=== PATIENT | female | born 1950 | race Caucasian/White ===

== ENCOUNTER 2017-04-13 22:21 | Emergency (ER) | payer MEDICARE, OTHER ==
[~2017-04-13] VITALS: Ht 167.6 cm; Wt 70.5 kg
[~2017-04-13 22:21] MED LIST: LORTA5 PO; MELO7.5 PO; SERT50 PO; SULF1TAB47 PO
[2017-04-13] MEDS ORDERED: DEXAMETHASONE SOD PHOS 20 MG/5 ML VIAL IM ONE (22:30)
[2017-04-13] MEDS ORDERED: AMLO5TAB2 PO (22:30)
[2017-04-13] MEDS ORDERED: ZOLO50TA PO (22:30)
[2017-04-13 22:31] VITALS: BP 145/84; PULSE 114; RESP 18; TEMP 98.2; O2SAT 92
[2017-04-13] MEDS ORDERED: MEDR4PAK PO (22:38)
[2017-04-13] MEDS ORDERED: VENTAER INH (22:38)
[2017-04-13] MEDS ORDERED: ZITHTAB PO (22:38)
--- NOTE | 2017-04-13 22:39 | PD ---
HPI Chief Complaint: Respiratory Symptoms Time Seen by Provider: 22:30 Travel History International Travel<30 days: No Contact w/Intl Traveler<30days: No Traveled to known affect area: No History of Present Illness HPI PT C/O 4 DAYS OF COUGH, WHITISH SPUTUM, PATIENT HAS RUN OUT OF HER ALBUTEROL AND HAS HAD WHEEZING SINCE RECENT CHANGE OF WEATHER. PATIENT DENIES FEVER/N/V/D /ABDPAIN/CP/ PCP DR WAGNER ALL:NKDA PMHX: COPD (SMOKER) NOT OXYGEN DEPENDANT PSHX: PFSH Past Medical History Arthritis: Yes Anxiety: Yes Depression: Yes Diminished Hearing: No Past Surgical History Appendectomy: Yes Hysterectomy: Yes Social History Alcohol Use: Yes Tobacco Use: Yes (1 PPD) Substance Use: No Allergies-Medications (Allergen,Severity, Reaction): Coded Allergies: No Known Allergies (Verified Adverse Reaction, Unknown, 04/13/17) Reported Meds & Prescriptions Reported Meds & Active Scripts Active Reported Amlodipine (Amlodipine Besylate) 5 Mg Tab 5 Mg PO DAILY Zoloft (Sertraline HCl) 50 Mg Tab 50 Mg PO DAILY Review of Systems Except as stated in HPI: all other systems reviewed are Neg General / Constitutional: No: Fever Eyes: No: Visual changes HENT: No: Headaches Cardiovascular: No: Chest Pain or Discomfort Respiratory: Positive: Cough, Wheezing Gastrointestinal: No: Abdominal Pain Genitourinary: No: Dysuria Musculoskeletal: No: Pain Skin: No Rash Neurologic: No: Weakness Psychiatric: No: Depression Endocrine: No: Polydipsia Hematologic/Lymphatic: No: Easy Bruising Physical Exam Narrative GENERAL: SKIN: Warm and dry. HEAD: Atraumatic. Normocephalic. EYES: Pupils equal and round. No scleral icterus. No injection or drainage. ENT: No nasal bleeding or discharge. Mucous membranes pink and moist. NECK: Trachea midline. No JVD. CARDIOVASCULAR: Regular rate and rhythm. RESPIRATORY: No accessory muscle use. GOOD TIDAL VOLUME BUT PRESENT WHEEZING BILATERALLY GASTROINTESTINAL: Abdomen soft, non-tender, nondistended. MUSCULOSKELETAL: Extremities without clubbing, cyanosis, or edema. No obvious deformities. NEUROLOGICAL: Awake and alert. No obvious cranial nerve deficits. Motor grossly within normal limits. Five out of 5 muscle strength in the arms and legs. Normal speech. PSYCHIATRIC: Appropriate mood and affect; insight and judgment normal. Data Data Orders Orders Influenzae A/B Antigen (04/13/17 22:30) Chest, Pa & Lat (04/13/17 22:30) Dexamethasone Inj (Decadron Inj) (04/13/17 22:30) Albuterol Neb (Albuterol Neb) (04/13/17 22:30) MDM Medical Decision Making Medical Screen Exam Complete: Yes Emergency Medical Condition: Yes Medical Record Reviewed: Yes Differential Diagnosis COPD EXACER V PNA V PTX Diagnosis Primary Impression: COPD exacerbation Patient Instructions: COPD (Chronic Obstructive Pulmonary Disease) (ED), General Instructions Additional Instructions: PLEASE FOLLOW UP WITH DR WAGNER FOR FURTHER CARE Scripts Albuterol 18 GM Inh (Ventolin Hfa 18 GM Inh) 90 Mcg/Act Aer 1 PUFF INH Q4H Y for SHORTNESS OF BREATH, #1 INHALER 0 Refills Prov: Rik Hong MD 04/13/17 Azithromycin (Zithromax Z-Eyad) 250 Mg Dspk 250 MG PO DIRECTED for Infection, #1 DSPK 0 Refills 500 MG (2 tabs) day 1, then 1 tab days 2-5. Prov: Rik Hong MD 04/13/17 Methylprednisolone Dosepak (Medrol Dosepak) 4 Mg Dspk 4 MG PO DIRECTED, #1 DSPK 0 Refills Per Pharmacist direction Prov: Rik Hong MD 04/13/17 Disposition: 01 DISCHARGE HOME Condition: Stable Rik Hong MD Apr 13, 2017 22:39
[2017-04-13] MEDS: RESP: ALBUTEROL 2.5 MG/3 ML NEB (SCH) INH ×2 (22:44→22:45)
--- NOTE | 2017-04-13 22:50 | RADRPT ---
EXAM DATE/TIME: 04/13/2017 22:38 [facility] COMPARISON: No previous studies available for comparison. INDICATIONS : Shortness of breath for 3 days MEDICAL HISTORY : Chronic obstructive pulmonary disease. SURGICAL HISTORY : None. ENCOUNTER: Initial ACUITY: 3 days PAIN SCORE: 0/10 LOCATION: Bilateral chest FINDINGS: PA and lateral views of the chest demonstrate the lungs to be symmetrically aerated without evidence of mass, infiltrate or effusion. The cardiomediastinal contours are unremarkable. Osseous structure s are intact. CONCLUSION: Normal examination. Ryley Boswell MD on April 13, 2017 at 22:48 Board Certified Radiologist. This report was verified electronically.
[2017-04-14 00:14] VITALS: BP 140/80; PULSE 92; RESP 18; O2SAT 94
[2017-04-16] MEDS ORDERED: VENTAER INH (09:23)
[2017-04-16] MEDS ORDERED: ALBU0.08 INH (09:23)
[2017-04-16] MEDS ORDERED: PRED10PA PO (09:23)
== END 2017-04-14 00:17 | disposition home or self-care (01) ==
LOC: PHED 22:21
DX: J44.1 Chronic obstructive pulmonary disease with (acute) exacerbation (principal); F17.200 Nicotine dependence, unspecified, uncomplicated; Z87.09 Personal history of other diseases of the respiratory system; Z87.39 Personal history of other diseases of the musculoskeletal system and connective tissue; Z86.59 Personal history of other mental and behavioral disorders
CPT/HCPCS: 71020; 87804; 94640; 94664; 96372; 99284; J1100; J7613

== ENCOUNTER 2017-04-14 18:18 | Inpatient (IN) | payer MEDICARE ==
[~2017-04-14] VITALS: Ht 165.1 cm; Wt 71.9 kg
[2017-04-14] VITALS (8 sets, daily range): BP systolic 128–166; BP diastolic 60–90; PULSE 27–127; RESP 20–22; TEMP 98–98.8; O2SAT 91–96
[~2017-04-14 18:18] MED LIST changes: +AMLO5TAB2 PO; +ENOXAPARIN SODIUM 40 MG/0.4 ML SYRINGE SQ SCH; -LORTA5 PO; +MEDR4PAK PO; -MELO7.5 PO; -SERT50 PO; -SULF1TAB47 PO; +VENTAER INH; +ZITHTAB PO; +ZOLO50TA PO
[2017-04-14] MEDS: RESP: ALBUTEROL 2.5 MG/3 ML NEB (SCH) INH ×4 (18:29→18:30)
[2017-04-14] MEDS ORDERED: methylPREDNISolone SOD SUCC 125 MG/2 ML VIAL IV PUSH ONE ×2 (18:30)
[2017-04-14] MEDS ORDERED: MAGNESIUM SULFATE 1 GM PREMIX 100 ML IV ONE ×2 (18:30)
[2017-04-14] MEDS ORDERED: SODIUM CHLORIDE 0.9% FLUSH 10 ML FLUSH IVF PRN ×2 (18:30)
--- NOTE | 2017-04-14 18:34 | PD ---
HPI Chief Complaint: Respiratory Symptoms Time Seen by Provider: 18:21 Travel History International Travel<30 days: No Contact w/Intl Traveler<30days: No Traveled to known affect area: No History of Present Illness HPI PATIENT SEEN YESTERDAY FOR COPD FLARE, PULSE OX WAS NORMAL. HOWEVER PER PT SOB RESUMED, PRESENTS TODAY WITH PULSE OX 89% ON RA, PER PATIENT SHE IS NOT OXYGEN DEPENDANT. PATIENT ON MEDROL TRICIA AND ZPAK....HOWEVER RETURNS TODAY VISIBLY WORSE THAN YESTERDAY. DENIES FEVER/PROD COUGH/N/V/D/ABDPAIN/CP. NO ALLEVIATING OR AGGRAVATING FACTORS PER PATIENT. PATIENT ALSO STATES THAT SHE IS CONTINUING TO SMOKE CIGARETTES (SMOKED 3 BETWEEN LAST NIGHT AND TODAY, USUALLY SMOKES 1 TO 1.5 PPD) PCP IS DR WAGNER [facility] Past Medical History Arthritis: Yes Anxiety: Yes Depression: Yes Diminished Hearing: No Menopausal: Yes Past Surgical History Appendectomy: Yes Hysterectomy: Yes Social History Alcohol Use: Yes Tobacco Use: Yes (1 PPD) Substance Use: No Allergies-Medications (Allergen,Severity, Reaction): Coded Allergies: No Known Allergies (Verified Adverse Reaction, Unknown, 04/13/17) Reported Meds & Prescriptions Reported Meds & Active Scripts Active Ventolin Hfa 18 GM Inh (Albuterol Sulfate) 90 Mcg/Act Aer 1 Puff INH Q4H PRN Zithromax Z-Tricia (Azithromycin) 250 Mg Dspk 250 Mg PO DIRECTED 500 MG (2 tabs) day 1, then 1 tab days 2-5. Medrol Dosepak (Methylprednisolone) 4 Mg Dspk 4 Mg PO DIRECTED Per Pharmacist direction Reported Amlodipine (Amlodipine Besylate) 5 Mg Tab 5 Mg PO DAILY Zoloft (Sertraline HCl) 50 Mg Tab 50 Mg PO DAILY Review of Systems Except as stated in HPI: all other systems reviewed are Neg General / Constitutional: No: Fever Eyes: No: Visual changes HENT: No: Headaches Cardiovascular: No: Chest Pain or Discomfort Respiratory: Positive: Shortness of Breath, Wheezing Gastrointestinal: No: Abdominal Pain Genitourinary: No: Dysuria Musculoskeletal: No: Pain Skin: No Rash Neurologic: No: Weakness Psychiatric: No: Depression Endocrine: No: Polydipsia Hematologic/Lymphatic: No: Easy Bruising Physical Exam Narrative GENERAL: SKIN: Warm and dry. HEAD: Atraumatic. Normocephalic. EYES: Pupils equal and round. No scleral icterus. No injection or drainage. ENT: No nasal bleeding or discharge. Mucous membranes pink and moist. NECK: Trachea midline. No JVD. CARDIOVASCULAR: Regular rate and rhythm. RESPIRATORY: SUPRASTERNAL accessory muscle use. DECREASED TV, JULIO WHEEZING, TRIPODING, ONE WORD DYSPNEA GASTROINTESTINAL: Abdomen soft, non-tender, nondistended. MUSCULOSKELETAL: Extremities without clubbing, cyanosis, or edema. No obvious deformities. NEUROLOGICAL: Awake and alert. No obvious cranial nerve deficits. Motor grossly within normal limits. Five out of 5 muscle strength in the arms and legs. Normal speech. PSYCHIATRIC: Appropriate mood and affect; insight and judgment normal. Data Data Last Documented VS Vital Signs Date Time Temp Pulse Resp B/P (MAP) Pulse Ox O2 Delivery O2 Flow Rate FiO2 04/14/17 21:02 20 04/14/17 20:57 114 128/60 (82) 96 Nasal Cannula 2.00 04/14/17 19:18 98.0 Orders Orders Complete Blood Count With Diff (04/14/17 18:) Comprehensive Metabolic Panel (04/14/17 18:22) B-Type Natriuretic Peptide (04/14/17 18:22) Act Partial Throm Time (Ptt) (04/14/17 18:) Prothrombin Time / Inr (Pt) (04/14/17 18:) Ckmb (Isoenzyme) Profile (04/14/17 18:22) Troponin I (04/14/17 18:22) Urinalysis - C+S If Indicated (04/14/17 18:22) Iv Access Insert/Monitor (04/14/17 18:22) Electrocardiogram (04/14/17 18:22) Ecg Monitoring (04/14/17 18:22) Oximetry (04/14/17 18:22) Oxygen Administration (04/14/17 18:22) Sodium Chloride 0.9% Flush (Ns Flush) (04/14/17 18:30) Methylprednisolone So Succ Inj (Solumedr (04/14/17 18:30) Albuterol Neb (Albuterol Neb) (04/14/17 18:30) Magnesium Sulfate 1 Gm Premix (Magnesium (04/14/17 18:30) Ct Pulmonary Angiogram (04/14/17 19:00) CKMB (04/14/17 18:50) CKMB% (04/14/17 18:50) Arterial Blood Gas (Abg) (04/14/17 19:23) Lactic Acid Sepsis Protocol (04/14/17 19:23) Sodium Chlor 0.9% 1000 Ml Inj (Ns 1000 M (04/14/17 19:30) Iohexol 350 Inj (Omnipaque 350 Inj) (04/14/17 19:45) Acetaminophen (Tylenol) (04/14/17 20:30) Lorazepam Inj (Ativan Inj) (04/14/17 20:30) Labs Laboratory Tests Test 04/14/17 18:50 04/14/17 18:58 04/14/17 19:40 04/14/17 20:19 Blood Urea Nitrogen 9 MG/DL Creatinine 0.96 MG/DL Random Glucose 128 MG/DL Total Protein 8.5 GM/DL Albumin 3.8 GM/DL Calcium Level 8.8 MG/DL Alkaline Phosphatase 61 U/L Aspartate Amino Transf (AST/SGOT) 26 U/L Alanine Aminotransferase (ALT/SGPT) 22 U/L Total Bilirubin 0.4 MG/DL Sodium Level 129 MEQ/L Potassium Level 3.4 MEQ/L Chloride Level 95 MEQ/L Carbon Dioxide Level 23.6 MEQ/L Anion Gap 10 MEQ/L Estimat Glomerular Filtration Rate 58 ML/MIN Total Creatine Kinase 419 U/L Creatine Kinase MB 2.3 NG/ML Creatine Kinase MB % 0.5 % Troponin I LESS THAN 0.02 NG/ML White Blood Count 12.7 TH/MM3 Red Blood Count 4.12 MIL/MM3 Hemoglobin 13.3 GM/DL Hematocrit 38.9 % Mean Corpuscular Volume 94.3 FL Mean Corpuscular Hemoglobin 32.3 PG Mean Corpuscular Hemoglobin Concent 34.2 % Red Cell Distribution Width 13.0 % Platelet Count 218 TH/MM3 Mean Platelet Volume 8.8 FL Neutrophils (%) (Auto) 81.0 % Lymphocytes (%) (Auto) 9.4 % Monocytes (%) (Auto) 5.8 % Eosinophils (%) (Auto) 0.0 % Basophils (%) (Auto) 3.8 % Neutrophils # (Auto) 10.3 TH/MM3 Lymphocytes # (Auto) 1.2 TH/MM3 Monocytes # (Auto) 0.7 TH/MM3 Eosinophils # (Auto) 0.0 TH/MM3 Basophils # (Auto) 0.5 TH/MM3 CBC Comment DIFF FINAL Differential Comment B-Type Natriuretic Peptide 63 PG/ML Lactic Acid Level 1.6 mmol/L Blood Gas Puncture Site RT BRACHIAL Blood Gas Patient Temperature 98.6 Blood Gas HCO3 23 mmol/L Blood Gas Base Excess -0.7 mmol/L Blood Gas Oxygen Saturation 91 % Arterial Blood pH 7.45 Arterial Blood Partial Pressure CO2 33 mmHG Arterial Blood Partial Pressure O2 66 mmHG Arterial Blood Oxygen Content 15.8 Vol % Arterial Blood Carboxyhemoglobin 1.9 % Arterial Blood Methemoglobin 1.1 % Blood Gas Hemoglobin 12.4 G/DL Oxygen Delivery Device NASAL CANNULA Blood Gas Liter Flow 2 L/M Test 04/14/17 20:45 Urine pH 6.0 Urine Protein NEG mg/dL Urine Glucose (UA) NEG mg/dL Urine Ketones NEG mg/dL Urine Occult Blood SMALL Urine Nitrite NEG Urine Bilirubin NEG Urine Leukocyte Esterase TRACE MDM Medical Decision Making Medical Screen Exam Complete: Yes Emergency Medical Condition: Yes Medical Record Reviewed: Yes Interpretation(s) SINUS TACHYCARDIA, NONSPEC STT CHANGES, INVERTED T WAVES V1-V3, NO STEMI PATTERN abg on 2liters (keep in mind pt is NOT on oxygen at home)...7.45/33/65.5 Differential Diagnosis COPD EXAC V PNA V PTX V FLU Narrative Course TACHYPNEA AND TACHYCARDIA ARE ELEVATED SECONDARY TO WHEEZING AND HYPOXEMIA NOT FEBRILE AND NOT SEPTIC Critical Care Narrative CRITICAL CARE NOTE: With evaluation of the patient, labs, EKG, receipt of radiologic studies, administration of medications, reevaluation the patient and discussion of the patient with the admitting physicians, the total critical care time was [45] minutes. Time to perform other separately billable procedures was not included in the critical care time. Diagnosis Primary Impression: HYPOXEMIC RESPIRATORY FAILURE Additional Impression: COPD exacerbation Admitting Information Admitting Physician Requests: Observation Rik Hong MD Apr 14, 2017 18:34
[2017-04-14 19:14] LABS: CHLORIDE 95 MEQ/L (98-107); SODIUM (NA) 129 MEQ/L (136-145)
[2017-04-14 19:17] LABS: ALBUMIN 3.8 GM/DL (3.4-5.0); BICARBONATE 23.6 MEQ/L (21.0-32.0); CALCIUM 8.8 MG/DL (8.5-10.1); GLUCOSE,RANDOM 128 MG/DL (74-106)
[2017-04-14 19:18] LABS: BLOOD UREA NITROGEN 9 MG/DL (7-18)
[2017-04-14 19:21] LABS: ALT (GPT) 22 U/L (10-53); AST (GOT) 26 U/L (15-37); CREATININE 0.96 MG/DL (0.50-1.00); GLOMERULAR FILTRATION RATE 58 ML/MIN (>89)
[2017-04-14 19:22] LABS: TOTAL BILIRUBIN ADULT 0.4 MG/DL (0.2-1.0); TOTAL PROTEIN 8.5 GM/DL (6.4-8.2)
[2017-04-14 19:23] LABS: ALKALINE PHOSPHATASE 61 U/L (45-117)
[2017-04-14 19:25] LABS: TROPONIN I LESS THAN 0.02 NG/ML (0.02-0.05)
[2017-04-14 19:28] LABS: AUTOMATED NEUTROPHIL # 10.3 TH/MM3 (1.8-7.7); BASOPHIL # 0.5 TH/MM3 (0-0.2); BASOPHIL % 3.8 % (0.0-2.0); HEMATOCRIT 38.9 % (35.0-46.0); HEMOGLOBIN 13.3 GM/DL (11.6-15.3); LYMPH % 9.4 % (9.0-44.0); LYMPHOCYTE # 1.2 TH/MM3 (1.0-4.8); MEAN CELL VOLUME 94.3 FL (80.0-100.0); MEAN CORPUSCULAR HEMOGLOBIN 32.3 PG (27.0-34.0); MEAN CORPUSCULAR HGB CONC 34.2 % (32.0-36.0); MEAN PLATELET VOLUME 8.8 FL (7.0-11.0); MONO % 5.8 % (0.0-8.0); MONOCYTE # 0.7 TH/MM3 (0-0.9); PLATELET COUNT 218 TH/MM3 (150-450); RED BLOOD COUNT 4.12 MIL/MM3 (4.00-5.30); WHITE BLOOD COUNT 12.7 TH/MM3 (4.0-11.0)
[2017-04-14] MEDS ORDERED: SODIUM CHLOR 0.9% 1000 ML INJ 1,000 ML IV ONE ×2 (19:30)
[2017-04-14] MEDS ORDERED: IOHEXOL 350 MG/ML 10 ML VIAL (for RAD DIAG) IVCONTRAST ONE ×2 (19:45)
--- NOTE | 2017-04-14 20:07 | RADRPT ---
EXAM DATE/TIME: 04/14/2017 19:43 [facility] COMPARISON: CHEST PA & LAT, April 13, 2017, 22:38. INDICATIONS : COPD. increased shortness of breath IV CONTRAST: 74 cc Omnipaque 350 (iohexol) IV RADIATION DOSE: 7.91 CTDIvol (mGy) MEDICAL HISTORY : Chronic obstructive pulmonary disease. SURGICAL HISTORY : None. ENCOUNTER: Initial ACUITY: 2 days PAIN SCALE: 0/10 LOCATION: chest TECHNIQUE: Volumetric scanning of the chest was performed using a pulmonary embolism protocol MIP images were re constructed. Using automated exposure control and adjustment of the mA and/or kV according to patien t size, radiation dose was kept as low as reasonably achievable to obtain optimal diagnostic quality images. DICOM format image data is available electronically for review and comparison. Follow-up recommendations for detected pulmonary nodules are based at a minimum on nodule size and pa tient risk factors according to Fleischner Society Guidelines. FINDINGS: Patchy focal nodular infiltrates in the right and left lower lobes and lateral segment of the right m iddle lobe. There is also a groundglass nodular infiltrate in the right upper lobe. In the mediastinu m, one point centimeter short axis subcarinal node, 1.1 cm right hilar lymph node, 7 mm left hilar ly mph node. In addition right paratracheal node measuring one point centimeters in short axis dimension identified. No pleural or pericardial effusions. No evidence of pulmonary embolism. CONCLUSION: 1. No evidence of pulmonary embolus. 2. Scattered nodular infiltrates are noted. Followup CT chest in 3 months recommended to ensure resol ution. Goldy Khanna MD on April 14, 2017 at 20:03 Board Certified Radiologist. This report was verified electronically.
[2017-04-14] MEDS ORDERED: ACETAMINOPHEN 325 MG TAB PO ONE ×2 (20:30)
[2017-04-14] MEDS ORDERED: LORazepam 2 MG/ML VIAL IV PUSH ONE ×2 (20:30)
[2017-04-14 20:54] LABS: BILIRUBIN, URINE NEG (NEG); BLOOD, URINE SMALL (NEG); GLUCOSE,URINE NEG (NEG); KETONE, URINE NEG (NEG); NITRITE,URINE NEG (NEG); URINE LEUKOCYTE ESTERASE TRACE (NEG)
[2017-04-14 21:04] LABS: URINE COLOR YELLOW (YELLW/STRAW)
[2017-04-14 21:05] LABS: RBC, URINE 0-3 /hpf (0-3)
[2017-04-14 21:06] LABS: AMORPHOUS SEDIMENT, URINE SMALL; BACTERIA, URINE FEW /hpf; SQUAMOUS EPITHELIAL CELL URINE 0-5 /hpf (0-5); WBC, URINE 0-2 /hpf (0-5)
[2017-04-14] MEDS ORDERED: SODIUM CHLORIDE 0.9% FLUSH 10 ML FLUSH IV FLUSH PRN ×2 (21:15)
[2017-04-14] MEDS ORDERED: RESP: ALBUTEROL 2.5 MG/IPRATROPIUM 0.5 MG NEB (PRN) ONE ×2 (21:23)
[2017-04-14] MEDS: RESP: ALBUTEROL 2.5 MG/IPRATROPIUM 0.5 MG NEB (SCH) INH ×2 (21:27)
[2017-04-14 21:37] LABS: INTERNATIONAL NORMALIZED RATIO 0.9 RATIO; PROTHROMBIN TIME - PATIENT 9.9 SEC (9.8-11.6)
[2017-04-15] VITALS (7 sets, daily range): BP systolic 122–152; BP diastolic 68–80; PULSE 87–117; RESP 20–24; TEMP 97.4–102; O2SAT 93–98
[2017-04-15] MEDS: RESP: ALBUTEROL 2.5 MG/3 ML NEB (PRN) INH ×6 (01:25→07:41)
[2017-04-15] MEDS: RESP: ALBUTEROL 2.5 MG/IPRATROPIUM 0.5 MG NEB (SCH) INH ×10 (03:48→21:22)
[2017-04-15 08:28] LABS: AUTOMATED NEUTROPHIL # 10.2 TH/MM3 (1.8-7.7); BASOPHIL % 0.4 % (0.0-2.0); EOSINOPHIL % 0.1 % (0.0-4.0); HEMATOCRIT 38.4 % (35.0-46.0); LYMPH % 6.9 % (9.0-44.0); LYMPHOCYTE # 0.8 TH/MM3 (1.0-4.8); MEAN CELL VOLUME 96.1 FL (80.0-100.0); MEAN CORPUSCULAR HEMOGLOBIN 32.5 PG (27.0-34.0); MEAN CORPUSCULAR HGB CONC 33.8 % (32.0-36.0); MEAN PLATELET VOLUME 8.8 FL (7.0-11.0); MONO % 6.3 % (0.0-8.0); MONOCYTE # 0.7 TH/MM3 (0-0.9); NEUT % 86.3 % (16.0-70.0); PLATELET COUNT 202 TH/MM3 (150-450); WHITE BLOOD COUNT 11.8 TH/MM3 (4.0-11.0)
[2017-04-15] MEDS: ENOXAPARIN SODIUM 40 MG/0.4 ML SYRINGE SQ SCH ×2 (08:33)
[2017-04-15 08:38] LABS: BICARBONATE 26.8 MEQ/L (21.0-32.0); CALCIUM 8.9 MG/DL (8.5-10.1)
[2017-04-15 08:42] LABS: CREATININE 0.94 MG/DL (0.50-1.00)
[2017-04-15] MEDS ORDERED: SODIUM CHLORIDE 0.9% FLUSH 10 ML FLUSH IV FLUSH SCH ×2 (09:00)
[2017-04-15] MEDS ORDERED: SODIUM CHLORIDE 0.9% FLUSH 10 ML FLUSH IV FLUSH PRN ×2 (11:00)
[2017-04-15] MEDS ORDERED: RESP: ALBUTEROL 2.5 MG/3 ML NEB (PRN) INH ×2 (11:00)
[2017-04-15] MEDS: SERTRALINE HCL 50 MG TAB PO SCH ×2 (11:40)
[2017-04-15] MEDS: guaiFENesin E.R. 600 MG TAB PO SCH ×4 (11:40→19:53)
[2017-04-15] MEDS: LEVOFLOXACIN 750 MG TAB PO SCH ×2 (11:40)
[2017-04-15] MEDS: amLODIPine BESYLATE 5 MG TAB PO SCH ×2 (11:40)
[2017-04-15] MEDS: methylPREDNISolone SOD SUCC 125 MG/2 ML VIAL IV PUSH SCH ×6 (11:42→23:14)
--- NOTE | 2017-04-15 12:35 | EKG ---
Date Performed: 04/14/2017 Time Performed: 18:29:08 PTAGE: 66 years EKG: SINUS TACHYCARDIA NONSPECIFIC ST & T-WAVE ABNORMALITY ABNORMAL RHYTHM ECG PREVIOUS TRACING : 09/03/1995 17.34 Compared to prior tracing no significant change DOCTOR: Guevara Thompson Interpretating Date/Time 04/15/2017 12:32:28
--- NOTE | 2017-04-15 14:28 | HHI.HP ---
[facility] Service [facility] Primary Care Physician Fritz Tinsley DO Admission Diagnosis COPD EXACERBATION, HYPOXEMIA Diagnoses: (1) Hypoxemia (2) Pneumonia (3) Lung infiltrate on CT (4) COPD exacerbation Travel History International Travel<30 Days: No Contact w/Intl Traveler <30 Da: No Traveled to Known Affected Are: No History of Present Illness This is a pleasant 66-year-old female with past medical history of COPD who continues to smoke, hypertension who presents to the ER last night complaining of a four-day history of cough and shortness of breath. The patient states that the symptoms began 4 days ago with cough and wheezing. The patient denied any fevers or chills however did have a fever today. The patient is also having some sharp pleuritic left-sided chest pain. The patient has moderate to severe shortness of breath. She has been taking prednisone and using bronchodilators with full effect. The patient was seen in the ER on April 13. She felt better after receiving Solu-Medrol injection however then felt worse. Patient does not use home oxygen. In the emergency department oxygen level was slightly low at 89%. Pulmonary CTA was negative for PE but did show scattered nodular infiltrates in a follow-up chest CT is recommended in 3 months. ABG showed slightly low PCO2, PO2 was normal on 2 L oxygen. Patient today is feeling better however she still has cough in the pleuritic chest pain. Review of Systems Constitutional: COMPLAINS OF: Fever Eyes: DENIES: Blurred vision, Diplopia Ears, nose, mouth, throat: DENIES: Throat pain, Running Nose Respiratory: COMPLAINS OF: Cough, Shortness of breath, DENIES: Sputum production Cardiovascular: COMPLAINS OF: Chest pain, DENIES: Palpitations Gastrointestinal: DENIES: Abdominal pain, Vomiting Genitourinary: DENIES: Dysuria Musculoskeletal: DENIES: Stiffness, Neck pain Integumentary: DENIES: Rash, Breast masses Neurologic: DENIES: Abnormal gait, Headache Psychiatric: DENIES: Anxiety, Confusion Past Family Social History Past Medical History COPD Depression and anxiety Hypertension Past Surgical History Hysterectomy Right knee surgery Appendectomy Reported Medications Allergies Coded Allergies Type Severity Reaction Last Updated Verified No Known Allergies Allergy Unknown 04/14/17 Yes Active Scripts Medications Dose Route/Sig Max Daily Dose Days Date Category Dose Instructions Ventolin Hfa 18 GM Inh (Albuterol Sulfate) 90 Mcg/Act Aer 1 Puff INH Q4H PRN 04/13/17 Rx Zithromax Z-Eyad (Azithromycin) 250 Mg Dspk 250 Mg PO DIRECTED 04/13/17 Rx 500 MG (2 tabs) day 1, then 1 tab days 2-5. Medrol Dosepak (Methylprednisolone) 4 Mg Dspk 4 Mg PO DIRECTED 04/13/17 Rx Per Pharmacist direction Amlodipine (Amlodipine Besylate) 5 Mg Tab 5 Mg PO DAILY 04/13/17 Reported Zoloft (Sertraline HCl) 50 Mg Tab 50 Mg PO DAILY 04/13/17 Reported Allergies: Coded Allergies: No Known Allergies (Verified Allergy, Unknown, 04/14/17) Family History Reviewed and noncontributory Social History She does smoke tobacco. Physical Exam Vital Signs Vital Signs Date Time Temp Pulse Resp B/P (MAP) Pulse Ox O2 Delivery O2 Flow Rate FiO2 04/15/17 12:00 102.0 112 24 142/72 (95) 95 04/15/17 08:00 101.1 100 20 146/80 (102) 96 04/15/17 07:45 93 Nasal Cannula 2.00 04/15/17 00:00 98.1 99 20 122/68 (86) 97 04/14/17 22:23 98.8 94 20 129/68 (88) 96 04/14/17 21:28 96 Nasal Cannula 2.00 04/14/17 21:02 20 04/14/17 20:57 114 20 128/60 (82) 96 Nasal Cannula 2.00 04/14/17 19:18 98.0 127 22 160/72 (101) 94 Nasal Cannula 2.00 04/14/17 19:17 22 94 Nasal Cannula 2.00 04/14/17 19:15 127 22 160/72 (101) 94 Nasal Cannula 2.00 04/14/17 18:30 22 96 Nasal Cannula 2.00 04/14/17 18:30 96 Nasal Cannula 2.00 04/14/17 18:30 96 Nasal Cannula 2.00 04/14/17 18:29 94 Nasal Cannula 2.00 04/14/17 18:25 98.2 115 22 166/90 (115) 91 Physical Exam GENERAL: This is a well-nourished, well-developed pleasant lean female patient, in no apparent distress. SKIN: No rashes, ecchymoses or lesions. Cool and dry. HEAD: Atraumatic. Normocephalic. EYES: Pupils equal round and reactive. Extraocular motions intact. No scleral icterus. No injection or drainage. ENT: Throat without erythema, tonsillar hypertrophy or exudate. Uvula midline. Airway patent. NECK: Trachea midline. No JVD or lymphadenopathy. Supple, nontender, no meningeal signs. CARDIOVASCULAR: Regular rate and rhythm without murmurs, gallops, or rubs. RESPIRATORY: Patient does have prolonged expiratory phase with expiratory wheezing bilaterally. Nonlabored breathing. GASTROINTESTINAL: Abdomen soft, non-tender, nondistended. MUSCULOSKELETAL: Extremities without clubbing, cyanosis, or edema. No joint tenderness, effusion, or edema noted. NEUROLOGICAL: Awake and alert. Normal speech. Laboratory Laboratory Tests Test 04/14/17 18:50 04/14/17 18:58 04/14/17 19:40 04/14/17 20:19 Prothrombin Time 9.9 Prothromb Time International Ratio 0.9 Activated Partial Thromboplast Time 27.8 Blood Urea Nitrogen 9 Creatinine 0.96 Random Glucose 128 Total Protein 8.5 Albumin 3.8 Calcium Level 8.8 Alkaline Phosphatase 61 Aspartate Amino Transf (AST/SGOT) 26 Alanine Aminotransferase (ALT/SGPT) 22 Total Bilirubin 0.4 Sodium Level 129 Potassium Level 3.4 Chloride Level 95 Carbon Dioxide Level 23.6 Anion Gap 10 Estimat Glomerular Filtration Rate 58 Total Creatine Kinase 419 Creatine Kinase MB 2.3 Creatine Kinase MB % 0.5 Troponin I LESS THAN 0.02 White Blood Count 12.7 Red Blood Count 4.12 Hemoglobin 13.3 Hematocrit 38.9 Mean Corpuscular Volume 94.3 Mean Corpuscular Hemoglobin 32.3 Mean Corpuscular Hemoglobin Concent 34.2 Red Cell Distribution Width 13.0 Platelet Count 218 Mean Platelet Volume 8.8 Neutrophils (%) (Auto) 81.0 Lymphocytes (%) (Auto) 9.4 Monocytes (%) (Auto) 5.8 Eosinophils (%) (Auto) 0.0 Basophils (%) (Auto) 3.8 Neutrophils # (Auto) 10.3 Lymphocytes # (Auto) 1.2 Monocytes # (Auto) 0.7 Eosinophils # (Auto) 0.0 Basophils # (Auto) 0.5 CBC Comment DIFF FINAL Differential Comment B-Type Natriuretic Peptide 63 Lactic Acid Level 1.6 Blood Gas Puncture Site RT BRACHIAL Blood Gas Patient Temperature 98.6 Blood Gas HCO3 23 Blood Gas Base Excess -0.7 Blood Gas Oxygen Saturation 91 Arterial Blood pH 7.45 Arterial Blood Partial Pressure CO2 33 Arterial Blood Partial Pressure O2 66 Arterial Blood Oxygen Content 15.8 Arterial Blood Carboxyhemoglobin 1.9 Arterial Blood Methemoglobin 1.1 Blood Gas Hemoglobin 12.4 Oxygen Delivery Device NASAL CANNULA Blood Gas Liter Flow 2 Test 04/14/17 20:45 04/15/17 07:28 Urine Color YELLOW Urine Turbidity CLEAR Urine pH 6.0 Urine Specific [place] 1.023 Urine Protein NEG Urine Glucose (UA) NEG Urine Ketones NEG Urine Occult Blood SMALL Urine Nitrite NEG Urine Bilirubin NEG Urine Leukocyte Esterase TRACE Urine RBC 0-3 Urine WBC 0-2 Urine Squamous Epithelial Cells 0-5 Urine Amorphous Sediment SMALL Urine Bacteria FEW Microscopic Urinalysis Comment CULT NOT INDICATED White Blood Count 11.8 Red Blood Count 4.00 Hemoglobin 13.0 Hematocrit 38.4 Mean Corpuscular Volume 96.1 Mean Corpuscular Hemoglobin 32.5 Mean Corpuscular Hemoglobin Concent 33.8 Red Cell Distribution Width 14.0 Platelet Count 202 Mean Platelet Volume 8.8 Neutrophils (%) (Auto) 86.3 Lymphocytes (%) (Auto) 6.9 Monocytes (%) (Auto) 6.3 Eosinophils (%) (Auto) 0.1 Basophils (%) (Auto) 0.4 Neutrophils # (Auto) 10.2 Lymphocytes # (Auto) 0.8 Monocytes # (Auto) 0.7 Eosinophils # (Auto) 0.0 Basophils # (Auto) 0.0 CBC Comment DIFF FINAL Differential Comment Blood Urea Nitrogen 8 Creatinine 0.94 Random Glucose 126 Calcium Level 8.9 Sodium Level 134 Potassium Level 3.6 Chloride Level 99 Carbon Dioxide Level 26.8 Anion Gap 8 Estimat Glomerular Filtration Rate 60 Result Diagram: 04/15/17 0728 04/15/[address] Angiography 04/14/17 1900 Signed Impressions: Service Date/Time: Friday, April 14, 2017 19:43 - CONCLUSION: 1. No evidence of pulmonary embolus. 2. Scattered nodular infiltrates are noted. Followup CT chest in 3 months recommended to ensure resolution. Goldy Khanna MD Caprini VTE Risk Assessment Caprini VTE Risk Assessment: Mod/High Risk (score >= 2) Caprini Risk Assessment Model Point Value = 1 Point Value = 2 Point Value = 3 Point Value = 5 Age 41-60 Minor surgery BMI > 25 kg/m2 Swollen legs Varicose veins or History of unexplained or recurrent spontaneous Oral contraceptives or hormone replacement Sepsis (< 1 month) Serious lung disease, including pneumonia (< 1 month) Abnormal pulmonary function Acute myocardial infarction Congestive heart failure (< 1 month) History of inflammatory bowel disease Medical patient at bed rest Age 61-74 Arthroscopic surgery Major open surgery (> 45 min) Laparoscopic surgery (> 45 min) Malignancy Confined to bed (> 72 hours) Immobilizing plaster cast Central venous access Age >= 75 History of VTE Family history of VTE Factor V Leiden Prothrombin [id number] Lupus anticoagulant Anticardiolipin antibodies Elevated serum homocysteine Heparin-induced thrombocytopenia Other congenital or acquired thrombophilia Stroke (< 1 month) Elective arthroplasty Hip, pelvis, or leg fracture Acute spinal cord injury (< 1 month) Prophylaxis Regimen Total Risk Factor Score Risk Level Prophylaxis Regimen 0-1 Low Early ambulation 2 Moderate Order ONE of the following: *Sequential Compression Device (SCD) *Heparin 5000 units SQ BID 3-4 Higher Order ONE of the following medications: *Heparin 5000 units SQ TID *Enoxaparin/Lovenox 40 mg SQ daily (WT < 150 kg, CrCl > 30 mL/min) *Enoxaparin/Lovenox 30 mg SQ daily (WT < 150 kg, CrCl > 10-29 mL/min) *Enoxaparin/Lovenox 30 mg SQ BID (WT < 150 kg, CrCl > 30 mL/min) AND/OR *Sequential Compression Device (SCD) 5 or more Highest Order ONE of the following medications: *Heparin 5000 units SQ TID (Preferred with Epidurals) *Enoxaparin/Lovenox 40 mg SQ daily (WT < 150 kg, CrCl > 30 mL/min) *Enoxaparin/Lovenox 30 mg SQ daily (WT < 150 kg, CrCl > 10-29 mL/min) *Enoxaparin/Lovenox 30 mg SQ BID (WT < 150 kg, CrCl > 30 mL/min) AND *Sequential Compression Device (SCD) Assessment and Plan Assessment and Plan COPD acute exacerbation with hypoxemia - failed outpatient treatment. Admit for IV steroids, bronchodilators, oxygen. Lung infiltrates - chest CT showing patchy focal nodular infiltrates in the right left lower lobes and right middle lobe - given cough and fever this is likely pneumonia however given her tobacco use history and the nodular appearance of the infiltrates a follow-up chest CT is recommended in 3 months to ensure resolution. Patient was given a copy of her chest CT and counseled that she needs to have follow-up imaging to ensure this has resolved and is not neoplasm. Patient voices understanding. Smoking cessation was also advised. Depression and anxiety - continue Zoloft. Hypertension - continue Norvasc. DVT prophylaxis with SCDs Gaviota Lewis MD Apr 15, 2017 14:28
[2017-04-15] MEDS: BENZONATATE 100 MG CAP PO PRN ×2 (17:32)
[2017-04-15] MEDS: ACETAMINOPHEN/HYDROcodone 325 MG/5 MG TAB PO PRN ×2 (17:33)
[2017-04-15] MEDS: SODIUM CHLORIDE 0.9% FLUSH 10 ML FLUSH IV FLUSH SCH ×2 (19:53)
[2017-04-16 00:41] VITALS: BP 129/78; PULSE 88; RESP 21; TEMP 97.4; O2SAT 96
[2017-04-16] MEDS: RESP: ALBUTEROL 2.5 MG/IPRATROPIUM 0.5 MG NEB (SCH) INH ×4 (04:00→09:55)
[2017-04-16] MEDS: methylPREDNISolone SOD SUCC 125 MG/2 ML VIAL IV PUSH SCH ×4 (05:23→11:04)
[2017-04-16] MEDS: BENZONATATE 100 MG CAP PO PRN ×2 (05:29)
[2017-04-16] MEDS: ACETAMINOPHEN/HYDROcodone 325 MG/5 MG TAB PO PRN ×2 (05:29)
[2017-04-16 07:00] LABS: CREATININE 0.79 MG/DL (0.50-1.00)
[2017-04-16 08:00] VITALS: BP 121/80; PULSE 84; RESP 18; TEMP 97.9; O2SAT 94
[2017-04-16] MEDS: ENOXAPARIN SODIUM 40 MG/0.4 ML SYRINGE SQ SCH ×2 (08:17)
[2017-04-16] MEDS: guaiFENesin E.R. 600 MG TAB PO SCH ×2 (08:17)
[2017-04-16] MEDS: SERTRALINE HCL 50 MG TAB PO SCH ×2 (08:17)
[2017-04-16] MEDS: amLODIPine BESYLATE 5 MG TAB PO SCH ×2 (08:17)
[2017-04-16] MEDS: SODIUM CHLORIDE 0.9% FLUSH 10 ML FLUSH IV FLUSH SCH ×2 (09:00)
--- NOTE | 2017-04-16 09:22 | HHI.PR ---
Subjective Remarks Patient states she is essentially feeling back to normal. She ambulated in the hallway without oxygen, was a little winded at the end of the walk. Denies any further cough. No wheezing. Afebrile. Objective Vitals Vital Signs Date Time Temp Pulse Resp B/P (MAP) Pulse Ox O2 Delivery O2 Flow Rate FiO2 04/16/17 08:00 97.9 84 18 121/80 (94) 94 04/16/17 00:41 97.4 88 21 129/78 (95) 96 04/15/17 21:28 97.4 87 20 133/72 (92) 94 04/15/17 21:22 98 Nasal Cannula 3.00 04/15/17 15:45 99.7 117 20 152/77 (102) 98 04/15/17 12:00 102.0 112 24 142/72 (95) 95 I/O 04/15/17 04/15/17 04/15/17 04/16/17 04/16/17 04/16/17 07:00 15:00 23:00 07:00 15:00 23:00 Intake Total 0 ml 1560 ml 420 ml Balance 0 ml 1560 ml 420 ml Intake Oral 0 ml 1560 ml 420 ml # Voids 1 4 # Bowel Movements 0 Result Diagram: 04/15/17 0728 04/16/17 0540 Objective Remarks GENERAL: Well-nourished, well-developed pleasant female patient. SKIN: Warm and dry. HEAD: Normocephalic. EYES: No scleral icterus. No injection or drainage. NECK: Supple, trachea midline. No JVD or lymphadenopathy. CARDIOVASCULAR: Regular rate and rhythm without murmurs, gallops, or rubs. RESPIRATORY: Breath sounds equal bilaterally. No wheezing. No accessory muscle use. GASTROINTESTINAL: Abdomen soft, non-tender, nondistended. EXTREMITIES: No cyanosis, or edema. NEUROLOGICAL: Awake, alert, and oriented x 3. Non-focal. A/P Problem List: (1) Hypoxemia ICD Code: R09.02 - Hypoxemia (2) Pneumonia ICD Code: J18.9 - Pneumonia, unspecified organism (3) Lung infiltrate on CT ICD Code: R91.8 - Other nonspecific abnormal finding of lung field (4) COPD exacerbation ICD Code: J44.1 - Chronic obstructive pulmonary disease with (acute) exacerbation Status: Acute Assessment and Plan COPD acute exacerbation with hypoxemia - failed outpatient treatment. She was admitted for IV steroids, bronchodilators, oxygen. She has had dramatic improvement overnight. She would like to go home. We will check an oxygen walk test. If that is okay we will allow her to be discharged with Levaquin prescription, prednisone, bronchodilators. Lung infiltrates - chest CT showing patchy focal nodular infiltrates in the right left lower lobes and right middle lobe - given cough and fever this is likely pneumonia however given her tobacco use history and the nodular appearance of the infiltrates a follow-up chest CT is recommended in 3 months to ensure resolution. Patient was given a copy of her chest CT and counseled that she needs to have follow-up imaging to ensure this has resolved and is not neoplasm. Patient voices understanding. Smoking cessation was also advised. Depression and anxiety - continue Zoloft. Hypertension - continue Norvasc. DVT prophylaxis with SCDs Gaviota Lewis MD Apr 16, 2017 09:22
[2017-04-16] MEDS ORDERED: ALBU0.08 INH ×2 (09:23)
[2017-04-16] MEDS ORDERED: VENTAER INH ×2 (09:23)
[2017-04-16] MEDS ORDERED: PRED10PA PO ×2 (09:23)
[2017-04-16 09:58] VITALS: O2SAT 96
[2017-04-16] MEDS: LEVOFLOXACIN 750 MG TAB PO SCH ×2 (11:04)
== END 2017-04-16 11:19 | disposition home or self-care (01) | DRG 190 ==
LOC: PHED 18:18 → PHEDA 21:09 → PH3A 22:01 → OBSVTOIN 04-15 10:52
PROVIDERS: ADMIT Family Medicine; ATTEND Family Medicine
DX: J44.0 Chronic obstructive pulmonary disease with (acute) lower respiratory infection (principal); J18.9 Pneumonia, unspecified organism; J44.1 Chronic obstructive pulmonary disease with (acute) exacerbation; F32.9 Major depressive disorder, single episode, unspecified; I10 Essential (primary) hypertension; F17.210 Nicotine dependence, cigarettes, uncomplicated; F41.9 Anxiety disorder, unspecified; R09.02 Hypoxemia
CPT/HCPCS: 36600; 71275; 80048; 80053; 81001; 82550; 82552; 82805; 83605; 83880; 84484; 85025; 85610; 85730; 93005; 94620; 94640; 94664; 96361; 96365; 96375; G0378; J1650; J2060; J2930; J3475; J7030; J7613; Q9967